=== PATIENT | female | born 1940 | race Caucasian/White ===

== ENCOUNTER 2019-01-17 19:25 | Emergency (ER) | payer MEDICARE ==
[2019-01-17 20:06] LABS: #Basophils 0.1 thou/uL (0.0-0.2); #Eosinphils 0.3 thou/uL (0.0-0.7); #Lymphocytes 2.1 thou/uL (1.20-3.40); #Monocytes 0.5 thou/uL (0.11-0.59); #Neutrophils 2.5 thou/uL (1.40-6.50); %Basophils 1.2 % (0.0-1.0); %Eosinophils 5.2 % (0.0-10.0); %Lymphocytes 38.6 % (21.0-51.0); %Monocytes 8.6 % (0.0-10.0); %Neutrophils 46.5 % (42.0-75.0); Hemoglobin 13.5 g/dL (12.0-16.0); Mean Corpuscular HGB CONC 33.4 g/dL (32.0-36.0); Mean Corpuscular Hemoglobin 32.6 pg (27.0-31.0); Mean Corpuscular Volume 97.5 fL (78.0-98.0); Mean Platelet Volume 8.2 fL (7.4-10.4); Platelet Count 215 thou/uL (130-400); RBC Distribution Width 12.5 % (11.5-14.5); Red Blood Cell (RBC) Count 4.14 mill/uL (4.20-5.40); White Blood Cell (WBC) Count 5.4 thou/uL (4.8-10.8)
[2019-01-17 20:28] LABS: ALT (SGPT) 13 U/L (8-55); AST (SGOT) 23 U/L (5-34); Albumin 4.2 g/dL (3.4-4.8); Alkaline Phosphatase 99 U/L (40-150); Anion Gap 13 mmol/L (10-20); BUN (Urea Nitrogen) 6 mg/dL (9.8-20.1); Bilirubin, Total 0.4 mg/dL (0.2-1.2); Calc. Creatinine Clearance 0 mL/min (70-130); Calcium 9.3 mg/dL (7.8-10.44); Carbon Dioxide 27 mmol/L (23-31); Chloride 108 mmol/L (98-107); Estimated GFR-MDRD 57; Globulin 2.5 g/dL (2.4-3.5); Potassium 3.7 mmol/L (3.5-5.1); Protein, Total 6.7 g/dL (6.0-8.3); Sodium 144 mmol/L (136-145)
[2019-01-17 20:35] LABS: Glucose 58 mg/dL (83-110)
[2019-01-17] MEDS ORDERED: Dextrose 50% Abboject 50 ML SYRINGE ONE (20:37)
== END 2019-01-17 21:22 | disposition home or self-care (01) ==
LOC: ERS 19:25
DX: I10 Essential (primary) hypertension (principal); E16.2 Hypoglycemia, unspecified; Z79.899 Other long term (current) drug therapy
CPT/HCPCS: 80053; 84484; 85025; 93005; 96374

== ENCOUNTER 2019-03-06 10:44 | Outpatient (CLI) | payer MEDICARE ==
--- NOTE | 2019-03-06 11:08 | CT ---
HEAD CT WITHOUT COTNRAST: HISTORY: Altered mental status. COMPARISON: None. FINDINGS: No parenchymal hemorrhage. No extraaxial hematoma. No midline shift. Basilar cisterns are patent. Brain volume is age appropriate. Cortical gibbons-white matter differentiation is preserved. Ventricles and sulci are patent and symmetric. Calvarium is intact. Mild mucosal thickening in the sinuses. Adequate mastoid air cells aeration. IMPRESSION: No acute intracranial process. POS: [facility]
== END 2019-03-06 10:45 | disposition home or self-care (01) ==
LOC: BICCT 10:44
PROVIDERS: ATTEND Internal Medicine Geriatric Medicine
DX: R41.82 Altered mental status, unspecified (principal)
CPT/HCPCS: 70450

== ENCOUNTER 2019-05-24 06:27 | Observation (INO) | payer MEDICARE ==
[2019-05-24 07:06] LABS: #Eosinphils 0.2 thou/uL (0.0-0.7); #Lymphocytes 1.8 thou/uL (1.20-3.40); #Monocytes 0.4 thou/uL (0.11-0.59); #Neutrophils 4.5 thou/uL (1.40-6.50); %Basophils 0.2 % (0.0-1.0); %Eosinophils 2.3 % (0.0-10.0); %Monocytes 6.1 % (0.0-10.0); %Neutrophils 65.5 % (42.0-75.0); Hemoglobin 13.7 g/dL (12.0-16.0); Mean Corpuscular HGB CONC 32.9 g/dL (32.0-36.0); Mean Corpuscular Hemoglobin 31.2 pg (27.0-31.0); Mean Platelet Volume 8.6 fL (7.4-10.4); Platelet Count 173 thou/uL (130-400); RBC Distribution Width 11.8 % (11.5-14.5); White Blood Cell (WBC) Count 6.8 thou/uL (4.8-10.8)
[2019-05-24] MEDS ORDERED: Morphine 4 MG/ML VIAL ONE (07:07)
[2019-05-24] MEDS ORDERED: Ondansetron PF 4 MG/2 ML Vial ONE (07:07)
[2019-05-24 07:18] LABS: ALT (SGPT) 12 U/L (8-55); AST (SGOT) 22 U/L (5-34); Albumin 3.9 g/dL (3.4-4.8); Alkaline Phosphatase 76 U/L (40-150); Anion Gap 12 mmol/L (10-20); BUN (Urea Nitrogen) 6 mg/dL (9.8-20.1); Bilirubin, Total 0.8 mg/dL (0.2-1.2); Calc. Creatinine Clearance 0 mL/min (70-130); Calcium 9.5 mg/dL (7.8-10.44); Carbon Dioxide 24 mmol/L (23-31); Chloride 107 mmol/L (98-107); Estimated GFR-MDRD 66; Globulin 2.3 g/dL (2.4-3.5); Glucose 84 mg/dL (83-110); Lipase 15 U/L (8-78); Protein, Total 6.2 g/dL (6.0-8.3); Sodium 139 mmol/L (136-145)
[2019-05-24 07:43] LABS: Bacteria/HPF None Seen HPF (None Seen); Bilirubin Negative (Negative); Blood, Urine Negative (Negative); Clarity Clear (Clear); Glucose, Urine (Dipstick) Normal (Negative); Leukocyte 250 Leu/uL (Negative); Mucous/LPF 1+ LPF (<2+); Nitrite Negative (Negative); Protein, Urine (Dipstick) Negative (Neg-Trace); RBC/HPF 0-3 HPF (0-3); Urobilinogen Normal mg/dL (Less than 2)
--- NOTE | 2019-05-24 08:51 | CT ---
CT abdomen and pelvis with IV contrast. Oral contrast was administered. INDICATIONS: Abdominal pain COMPARISON: 08/31/2016 CT abdomen pelvis FINDINGS: Lung bases are clear Liver, spleen, and pancreas appear unremarkable. Stomach and duodenum appear unremarkable. Adrenal glands appear normal. Kidneys appear unremarkable. Collecting structures and urinary bladder appear unremarkable. Distal ileal loops demonstrate diffuse mural thickening and luminal narrowing with some surrounding i nflammatory haziness suggesting enteritis. This involves the terminal ileum and cecum. Appendix not identified. The transverse and left colon unremarkable with diverticulosis in the sigmoid. Aorta shows atherosclerotic calcification. Normal caliber. No evidence of retroperitoneal or mesenteric adenopathy. Pelvic structures appear unremarkable. Small volume ascites is noted with small amount of fluid around the liver margin. Moderate fluid in t he deep pelvis is similar to the prior study. Subcutaneous tissues, abdominal wall, and muscular structures appear unremarkable. Osseous structures appear unremarkable. IMPRESSION: 1. Mural thickening of the distal and terminal ileum with inflammatory change suggesting enteritis. T here is cecal involvement. 2. Small volume ascites with moderate fluid in the deep pelvis, similar to the prior exam
[2019-05-24] MEDS ORDERED: Acetaminophen 325 MG TAB PO PRN (10:48)
[2019-05-24] MEDS ORDERED: Senokot S 8.6-50 MG TAB PO PRN (10:48)
[2019-05-24] MEDS: Sodium Chloride 0.9% 1,000 ML IV SCH (12:27)
--- NOTE | 2019-05-24 12:29 | HP ---
PRIMARY CARE PHYSICIAN: Dr. Gonzalez. REASON FOR ADMISSION: Abdominal pain. HISTORY OF PRESENT ILLNESS: Ms. Riddel is a 78-year-old female, who reported to the emergency room for abdominal pain overnight. Reports that she thinks she ate something bad either yesterday or day before. Denies any nausea, vomiting, or diarrhea. Does report some constipation, which she said she has dealt with most of her life. She has taken a laxative last night and reports that she usually gets some relief from that, but she has not today. The patient has a past medical history pertinent for hypertension and dementia. The patient is also a Jehov[employer] Witness and does not want any blood products. Family at the bedside. Code status was discussed. The patient is a full code, and son at the bedside is the surrogate decision maker. The patient reports that her belly was distended yesterday, but denied any gas or any stools in last 2 to 3 days. Denies any nausea, vomiting, or diarrhea. The patient was admitted to the medical unit for further observation. REVIEW OF SYSTEMS: Reports abdominal pain. Reports constipation. Reports complaining of midback pain several days ago. All other systems are reviewed and negative unless mentioned in the HPI. PAST MEDICAL HISTORY: 1. Hypothyroidism. 2. Hypertension. 3. Dementia. PAST SURGICAL HISTORY: History of hysterectomy. PSYCHIATRIC HISTORY: None. SOCIAL HISTORY: Lives at [facility]. Denies any alcohol, drug, or smoking history. ALLERGIES: PENICILLIN AND SULFA. MEDICATIONS: Current medications not available, we will have to further reconcile. Daughter at the bedside reports that she does take medicine for thyroid, for dementia, and for hypertension. Reports that she has not taken these this morning. PHYSICAL EXAMINATION: VITAL SIGNS: Blood pressure 144/86, pulse 61, respirations are 15, temperature is 98.0, pO2 sats are 99% on room air. CONSTITUTIONAL: The patient is nontoxic. She is alert and oriented to person, place, and time. HEENT: Head is atraumatic and normocephalic. Eyes; eyelids are normal to inspection. Extraocular muscles are intact. There is no nystagmus present. ENT; mouth exam is normal. Mucous membranes are moist. NECK: Normal range of motion. Trachea is midline. RESPIRATORY: Chest breath sounds are clear. There are no findings of any respiratory distress. CARDIOVASCULAR: Regular heart rate and rhythm. Heart sounds are normal. ABDOMEN: Tender in right lower quadrant. There is rebound. Bowel sounds are hypoactive. BACK: Normal inspection. Normal range of motion. No tenderness on palpation. EXTREMITIES: Upper extremities range of motion is normal. Motor strength is normal. Radial pulses are normal. Lower extremities, normal range of motion. Motor strength is normal. Pedal pulses are normal. The patient has some ecchymosis along the second and third base of metatarsals. No tender on palpation. NEUROLOGIC: The patient is oriented to person, place, and time. Speech is normal. SKIN: Warm, dry, normal in color. DIAGNOSTIC DATA: EKG in emergency room shows normal sinus rhythm, beats per minute 64, T-waves inverted in inferior leads and lateral leads, axis is left. ASSESSMENT AND PLAN: 1. Abdominal pain. Impression on the CT of abdomen and pelvis shows mural thickening of the distal and terminal ileum with inflammatory changing suggesting enteritis. There is also cecal involvement. Small volume ascites with moderate fluid in the deep pelvis similar to prior exam. There is concern for appendicitis. The patient and family at the bedside denied that she has had any belly surgery other than hysterectomy. We will ask Dr. Rock to consult. Levaquin was started in the ER. We will continue this. Normal saline at 75 mL per hour will be continued. The patient will become n.p.o. We will allow medications and sips of water. 2. History of hypothyroidism. We will check TSH. Restart home medications. 3. History of hypertension. Reconcile home medications. We will restart. We will trend. 4. Recheck labs in the morning. 5. Case discussed with Dr. Long, who agrees with plan. 6. Deep venous thrombosis and gastrointestinal prophylaxis have been started. Job ID: [id number]
[2019-05-24] MEDS ORDERED: ISOVUE-370 76%-LOCM 1 ML ONE (12:55)
[2019-05-24 13:18] LABS: Troponin I Less than 0.010 ng/mL (< 0.028)
[2019-05-24 16:09] LABS: Troponin I Less than 0.010 ng/mL (< 0.028)
[2019-05-24] MEDS: Lisinopril 10 MG TAB PO SCH (20:48)
[2019-05-24] MEDS: Famotidine 20 MG TAB PO SCH (20:50)
[2019-05-24] MEDS: Donepezil HCl 10 MG TAB PO SCH (20:50)
[2019-05-25] MEDS: Sodium Chloride 0.9% 1,000 ML IV SCH ×2 (02:32→17:56)
[2019-05-25] MEDS ORDERED: Levothyroxine Sodium 25 MCG TAB PO SCH (06:00)
[2019-05-25] MEDS ORDERED: Carvedilol 3.125 MG TAB PO SCH (08:00)
[2019-05-25] MEDS: Lisinopril 10 MG TAB PO SCH ×2 (09:20→21:51)
[2019-05-25] MEDS: Aspirin 81 mg Enteric Coated Tablet PO SCH (09:20)
[2019-05-25] MEDS: Famotidine 20 MG TAB PO SCH ×2 (09:21→21:51)
[2019-05-25] MEDS: Enoxaparin Sodium 40 MG/0.4 ML SYRINGE SC SCH (09:26)
[2019-05-25 09:48] LABS: #Eosinphils 0.1 thou/uL (0.0-0.7); #Lymphocytes 1.5 thou/uL (1.20-3.40); #Monocytes 0.3 thou/uL (0.11-0.59); #Neutrophils 2.4 thou/uL (1.40-6.50); %Basophils 0.3 % (0.0-1.0); %Eosinophils 2.2 % (0.0-10.0); %Lymphocytes 34.9 % (21.0-51.0); %Monocytes 7.8 % (0.0-10.0); %Neutrophils 54.9 % (42.0-75.0); Hemoglobin 11.9 g/dL (12.0-16.0); Mean Corpuscular Hemoglobin 32.1 pg (27.0-31.0); Mean Corpuscular Volume 97.2 fL (78.0-98.0); Mean Platelet Volume 8.4 fL (7.4-10.4); Platelet Count 141 thou/uL (130-400); RBC Distribution Width 11.6 % (11.5-14.5); White Blood Cell (WBC) Count 4.4 thou/uL (4.8-10.8)
[2019-05-25 10:13] LABS: ALT (SGPT) 8 U/L (8-55); AST (SGOT) 17 U/L (5-34); Albumin 3.2 g/dL (3.4-4.8); Alkaline Phosphatase 65 U/L (40-150); Anion Gap 11 mmol/L (10-20); BUN (Urea Nitrogen) 5 mg/dL (9.8-20.1); Bilirubin, Total 0.6 mg/dL (0.2-1.2); Calc. Creatinine Clearance 64 mL/min (70-130); Calcium 8.6 mg/dL (7.8-10.44); Carbon Dioxide 22 mmol/L (23-31); Chloride 109 mmol/L (98-107); Estimated GFR-MDRD 81; Glucose 68 mg/dL (83-110); Potassium 3.7 mmol/L (3.5-5.1); Protein, Total 5.2 g/dL (6.0-8.3); Sodium 138 mmol/L (136-145)
--- NOTE | 2019-05-25 12:17 | CON ---
DATE OF CONSULTATION: CHIEF COMPLAINT: Abnormal CT scan. HISTORY OF PRESENT ILLNESS: This is a 78-year-old female, who has chronic constipation. Evidently, she took a laxative and developed some abdominal pain, went to the emergency room. She says she feels fine now that she is back to baseline. She had a bowel movement. They had her on clear liquids last night, but she has been n.p.o. since. PAST MEDICAL HISTORY: Hypertension, dementia, and hypothyroidism. PAST SURGICAL HISTORY: Hysterectomy. MEDICATIONS: She is on; 1. Lisinopril. 2. Coreg. 3. Aspirin. 4. Synthroid. 5. Aricept. ALLERGIES: SHE HAS ALLERGIES TO PENICILLIN AND SULFA. SOCIAL HISTORY: She is a [employer]. She lives at a long term at [facility]. No tobacco or alcohol. PHYSICAL EXAMINATION: VITAL SIGNS: Temperature 97.3, pulse 57, and blood pressure 128/60. GENERAL: She is awake, alert. She does not appear to be in any distress. HEENT: Unremarkable. LUNGS: Clear. HEART: Regular rate and rhythm. ABDOMEN: Soft, nondistended, and nontender. EXTREMITIES: Unremarkable. LABORATORY DATA: White count 4.4, H and H of 11 and 35, and platelet count 141. CT scan showed some mural thickening of the terminal ileum and possible cecal involvement. ASSESSMENT: Enteritis/colitis. PLAN: GI consultation. No surgery needed. Job ID: [id number]
--- NOTE | 2019-05-25 15:55 | PDOC.HOSPP ---
- Subjective Encounter Date: 05/25/19 Encounter Time: 12:30 Subjective: pt up in bed complains of being bloated. - Objective Vital Signs & Weight: Vital Signs (12 hours) Temp Pulse Resp BP Pulse Ox 05/25/19 15:31 97.7 F 58 L 14 164/72 H 99 05/25/19 11:58 97.9 F 50 L 20 166/70 H 99 05/25/19 07:28 97.3 F L 57 L 20 128/60 97 Weight Weight 134 lb 14.4 oz I&O: 05/24/19 05/25/19 05/26/19 06:59 06:59 06:59 Intake Total 1956 Output Total 950 200 Balance 1006 -200 Result Diagrams: 05/25/19 09:40 05/25/19 09:40 Hospitalist ROS - Review of Systems Respiratory: denies: cough, dry, shortness of breath, hemoptysis, SOB with excertion, pleuritic pain, sputum, wheezing, other Cardiovascular: denies: chest pain, palpitations, orthopnea, paroxysmal noc. dyspnea, edema, light headedness, other Gastrointestinal: reports: abdominal pain - Medication Medications: Active Medications Generic Name Dose Route Start Last Admin Trade Name Freq PRN Reason Stop Dose Admin Acetaminophen 650 mg 05/24/19 10:48 05/25/19 02:33 Tylenol PO 650 mg Q4H PRN Administration Headache/Fever/Mild Pain (1-3) Aspirin 81 mg 05/25/19 09:00 05/25/19 09:20 Ecotrin PO 81 mg DAILY MOOK Administration Carvedilol 3.125 mg 05/25/19 08:00 05/25/19 09:20 Coreg PO 3.125 mg BID-WM MOOK Administration Donepezil HCl 10 mg 05/24/19 21:00 05/24/19 20:50 Aricept PO 10 mg HS MOOK Administration Enoxaparin Sodium 40 mg 05/25/19 09:00 05/25/19 09:26 Lovenox SC Not Given 0900 MOOK Famotidine 20 mg 05/24/19 21:00 05/25/19 09:21 Pepcid PO 20 mg BID MOOK Administration Sodium Chloride 1,000 mls @ 75 mls/hr 05/24/19 11:00 05/25/19 02:32 Normal Saline 0.9% IV 1,000 mls .[id number] MOOK Administration Levofloxacin 750 mg/ Device 150 mls @ 100 mls/hr 05/25/19 09:00 05/25/19 09: 21 IVPB 150 mls Q24HR MOOK Administration Lisinopril 10 mg 05/24/19 21:00 05/25/19 09:20 Zestril PO 10 mg BID MOOK Administration - Exam Heart: negative: RRR, no murmur, no gallops, no rubs, normal peripheral pulses, irregular, diminshed peripheral pulses, murmur present, II/IV, III/IV Respiratory: negative: CTAB, no wheezes, no rales, no ronchi, normal chest expansion, no tachypnea, normal percussion, rales, rhonchi, tachypneic, wheezes Gastrointestinal: soft, tender to palpation Hosp A/P (1) Enteritis Code(s): K52.9 - NONINFECTIVE GASTROENTERITIS AND COLITIS, UNSPECIFIED Status : Acute (2) Hypertension, uncontrolled Code(s): I10 - ESSENTIAL (PRIMARY) HYPERTENSION Status: Acute (3) UTI (urinary tract infection) Status: Acute - Plan no uti. will get echo since her bnp is elevated. will hold coreg due to bradycardia. will decrease her thyroid medication to 88mcg for low tsh.
[2019-05-25] MEDS ORDERED: Furosemide 40 MG/4 ML VIAL SLOW IVP SCH (16:00)
[2019-05-25] MEDS: Donepezil HCl 10 MG TAB PO SCH (21:53)
[2019-05-26] MEDS ORDERED: diphenhydrAMINE 50 MG/ML VIAL IVP SCH (02:00)
[2019-05-26] MEDS ORDERED: Levothyroxine Sodium 88 MCG TAB PO SCH (06:00)
[2019-05-26] MEDS: Famotidine 20 MG TAB PO SCH (09:04)
[2019-05-26] MEDS: Aspirin 81 mg Enteric Coated Tablet PO SCH (09:04)
[2019-05-26] MEDS: Enoxaparin Sodium 40 MG/0.4 ML SYRINGE SC SCH (09:05)
[2019-05-26] MEDS: Lisinopril 10 MG TAB PO SCH (09:05)
[2019-05-26 16:00] VITALS: BMI 23.8
[2019-05-26 16:02] VITALS: BP 171/79; TEMP 97.6
--- NOTE | 2019-05-27 03:42 | DIS ---
DATE OF ADMISSION: 05/24/2019 DATE OF DISCHARGE: 05/26/2019 DISCHARGE DIAGNOSES: As of the following. 1. Abdominal pain secondary to enteritis. 2. Mildly elevated BNP. 3. Abdominal bloating. 4. Hypertension. HOSPITAL COURSE: The patient is a 78-year-old female, who initially presented to the hospital with complaints of abdominal pain and bloating. She had a CT of abdomen and pelvis, which did show she did have some thickening in the distal terminal ileum with inflammatory changes suggesting enteritis. I have reviewed her previous record and she had the same findings in her previous abdominal CAT scan in the past, and it has always been distal terminal ileum. She also was found to have moderate ascites and moderate fluid. I did update the patient's family about this. The patient also has a little bit of dementia. She does not remember a lot of things. Her abdominal pain improved, and she was able to tolerate her meals and she was discharged. The patient's family states that at baseline she does not eat very much to begin with and has lost 4 pounds. According to the family, she is a bad eater. She also has significant constipation and takes laxatives for that. I recommended following up with GI for further evaluation for this chronic findings that she has had on multiple CAT scans. Family understands. Also, she had an echocardiogram with Cardiology about 3 months ago and it appeared to be stable. I did order an echocardiogram here, the results were pending. The patient's family wanted to take her home before the results came back. The patient again was able to tolerate meals. Her abdominal pain had improved. I will discharge her. While she was here, she did have her TSH checked, which was low, so we decreased her Synthroid from 100 mcg to 88 mcg. Her meds will be as of following, 1. Levaquin 500 mg daily. 2. Synthroid 88 mcg daily. 3. Florastor 250 mg daily. 4. Aricept 10 mg daily. 5. Aspirin 81 mg daily. 6. Carvedilol 1 p.o. b.i.d. 7. Lisinopril 10 mg p.o. b.i.d. PHYSICAL EXAMINATION: VITAL SIGNS: As of the following; temperature of 97.6, pulse 64, respirations 18, temperature 98% on room air, and blood pressure 141/72. GENERAL: She is awake, alert and oriented x3. ABDOMEN: She has mild pain upon palpation to her abdominal area, otherwise soft. Bowel sounds are present. EXTREMITIES: No edema. Pedal pulses are present x2. LUNGS: Clear to auscultation. The patient was seen by General Surgery, no intervention. They thought initially the CT findings were consistent with possible appendicitis. However, Surgery did evaluate and recommended a GI consultation, which I agree. However, the patient can follow this up as an outpatient since this was not an acute finding, she has had this in the past. Also, the patient has had a colonoscopy per family a long time ago, not in this state, it was a different state. Job ID: [id number]
== END 2019-05-26 19:32 | disposition home or self-care (01) ==
LOC: ERS 06:27 → 2SW 10:10
PROVIDERS: ADMIT Internal Medicine Nephrology; ATTEND Internal Medicine Nephrology
DX: K52.9 Noninfective gastroenteritis and colitis, unspecified (principal); R18.8 Other ascites; R79.89 Other specified abnormal findings of blood chemistry; I10 Essential (primary) hypertension; E03.9 Hypothyroidism, unspecified; F03.90 Unspecified dementia, unspecified severity, without behavioral disturbance, psychotic disturbance, mood disturbance, and anxiety; Z88.0 Allergy status to penicillin; Z88.5 Allergy status to narcotic agent
CPT/HCPCS: 74177; 80053; 83605; 83690; 83880; 84484 ×2; 85025; 87086; 93005; 93306; 96361 ×3; 96365; 96366 ×2; 96375 ×2; 96376; 97112; 97116; 97139 ×3; 99285; G0378 ×4; 36415; 81003; 81015; 84443; J1200; J1650; J1940; J1956; J2270; J2405; Q9966

== ENCOUNTER 2019-05-30 00:22 | Emergency (ER) | payer MEDICARE ==
[2019-05-30 00:49] LABS: #Basophils 0.1 thou/uL (0.0-0.2); #Eosinphils 0.2 thou/uL (0.0-0.7); #Lymphocytes 1.9 thou/uL (1.20-3.40); #Monocytes 0.5 thou/uL (0.11-0.59); #Neutrophils 1.9 thou/uL (1.40-6.50); %Basophils 1.7 % (0.0-1.0); %Lymphocytes 41.3 % (21.0-51.0); %Monocytes 11.7 % (0.0-10.0); %Neutrophils 41.2 % (42.0-75.0); Hemoglobin 11.9 g/dL (12.0-16.0); Mean Corpuscular HGB CONC 33.3 g/dL (32.0-36.0); Mean Corpuscular Hemoglobin 31.7 pg (27.0-31.0); Mean Corpuscular Volume 95.3 fL (78.0-98.0); Mean Platelet Volume 8.1 fL (7.4-10.4); Platelet Count 182 thou/uL (130-400); RBC Distribution Width 11.8 % (11.5-14.5); Red Blood Cell (RBC) Count 3.76 mill/uL (4.20-5.40); White Blood Cell (WBC) Count 4.6 thou/uL (4.8-10.8)
[2019-05-30 01:09] LABS: ALT (SGPT) 10 U/L (8-55); AST (SGOT) 18 U/L (5-34); Albumin 3.7 g/dL (3.4-4.8); Alkaline Phosphatase 86 U/L (40-150); Anion Gap 12 mmol/L (10-20); BUN (Urea Nitrogen) 6 mg/dL (9.8-20.1); Bilirubin, Total 0.5 mg/dL (0.2-1.2); Calc. Creatinine Clearance 0 mL/min (70-130); Calcium 9.4 mg/dL (7.8-10.44); Carbon Dioxide 25 mmol/L (23-31); Chloride 107 mmol/L (98-107); Estimated GFR-MDRD 64; Globulin 2.3 g/dL (2.4-3.5); Glucose 92 mg/dL (83-110); Lipase 24 U/L (8-78); Potassium 3.4 mmol/L (3.5-5.1); Sodium 141 mmol/L (136-145)
[2019-05-30 02:49] LABS: Bilirubin Negative (Negative); Blood, Urine Negative (Negative); Clarity Clear (Clear); Glucose, Urine (Dipstick) Normal (Negative); Leukocyte Negative Leu/uL (Negative); Nitrite Negative (Negative); Protein, Urine (Dipstick) Negative (Neg-Trace); Urobilinogen Normal mg/dL (Less than 2)
--- NOTE | 2019-05-30 08:02 | CT ---
PRELIMINARY REPORT/[facility]/EMERGENCY AFTER HOURS PROCEDURE: PROCEDURE INFORMATION: Exam: CT Abdomen and Pelvis With Contrast Exam date and time: 05/30/2019 1:12 AM Clinical history: 78 years old, female; Abdominal pain; Generalized; Patient HX: 78 y/o F presents to ED via EMS transport C/O abd pain, with bloating sensation. PT states her abd has felt swollen x 2-3 days, with worsening since onset. She as prompted to come to ED as the pain has become severe TECHNIQUE: Imaging protocol: Computed tomography of the abdomen and pelvis with intravenous contrast. COMPARISON: No relevant prior studies available. FINDINGS: Liver: Normal. No mass. Gallbladder and bile ducts: Normal. No calcified stones. No ductal dilation. Pancreas: Normal. No ductal dilation. Spleen: Normal. No splenomegaly. Adrenals: Normal. No mass. Kidneys and ureters: Normal. No hydronephrosis. Stomach and bowel: Colonic diverticulosis. No diverticulitis. No bowel wall thickening or intestinal obstruction. Appendix: Normal appendix. Intraperitoneal space: Unremarkable. No free air. No significant fluid collection. Vasculature: Unremarkable. No abdominal aortic aneurysm. Lymph nodes: Unremarkable. No enlarged lymph nodes. Bladder: Unremarkable as visualized. Reproductive: 2.2 cm right ovarian cyst. Prior hysterectomy. Bones/joints: Unremarkable. No acute fracture. Soft tissues: Unremarkable. IMPRESSION: 2.2 cm right ovarian cyst. Thank you for allowing us to participate in the care of your patient. Dictated and Authenticated by: Ced Puente MD 05/30/2019 2:13 AM Central Time ([place] & [place]) FINAL REPORT CT ABDOMEN AND PELVIS WITH IV CONTRAST: Date: 05/30/19 FINDINGS/IMPRESSION: Comparison made to CT abdomen and pelvis dated 05/24/19. The mural thickening and inflammatory change involving the distal ileum on the prior exam is no longe r apparent. The fluid in the deep pelvis seen on the prior exam has resolved. There is a 2.0 cm cyst in the right upper pelvis which appears to be ovarian. There is evidence of hy sterectomy. I am in agreement with the preliminary report issued by [facility]. POS: [facility]
[2019-05-30] MEDS ORDERED: ISOVUE-370 76%-LOCM 1 ML ONE (11:57)
--- NOTE | 2019-05-31 13:38 | EKG ---
Test Reason : Blood Pressure : / mmHG Vent. Rate : 063 BPM Atrial Rate : 061 BPM P-R Int : 000 ms QRS Dur : 098 ms QT Int : 418 ms P-R-T Axes : 000 -36 -49 degrees QTc Int : 427 ms Junctional rhythm Left axis deviation Septal infarct , age undetermined Abnormal ECG Confirmed by MACHELLE IGLESIAS ([id number]), principal technical architect SINDY PHILIP ([id number]) on 05/31/2019 1:37:49 PM Referred By: Confirmed By:MACHELLE IGLESIAS
== END 2019-05-30 02:58 | disposition home or self-care (01) ==
LOC: ERS 00:22
DX: R10.9 Unspecified abdominal pain (principal); E03.9 Hypothyroidism, unspecified; I10 Essential (primary) hypertension
CPT/HCPCS: 36415; 74177; 80053; 81003; 83690; 83880; 85025; 93005; Q9966

== ENCOUNTER 2019-06-17 22:37 | Emergency (ER) | payer MEDICARE ==
[2019-06-17] MEDS ORDERED: Fentanyl 100 MCG/2 ML VIAL ONE (23:13)
--- NOTE | 2019-06-17 23:18 | RAD ---
XR Wrist Lt 2 View History: Fall. Deformity Comparison: None. Findings: Intra-articular distal radius fracture with impaction and dorsal angulation. There is also distal ulnar fracture also with impaction and dorsal angulation. Impression: Impacted dorsally angulated intra-articular fractures of the distal radius and ulna.
[2019-06-17] MEDS ORDERED: Midazolam HCl 2 mg/2 ml Vial ONE (23:39)
[2019-06-18] MEDS ORDERED: Acetaminophen 500 MG TAB ONE
[2019-06-18] MEDS ORDERED: Fentanyl 100 MCG/2 ML VIAL ONE (00:13)
[2019-06-18] MEDS ORDERED: PROPOFOL 20 ML ONE (01:24)
--- NOTE | 2019-06-18 07:40 | RAD ---
LEFT WRIST 2 VIEWS: INDICATION: Post reduction. Compared to exam from previous day. FINDINGS: Interval placement of splint. Improved alignment of distal radial and ulnar fractures with mild displacement remaining. There is slight angulation of the distal ulnar fracture, although improved. Detail is otherwise limited by overlying artifact. IMPRESSION: Improved alignment of distal radial and ulnar fractures. Transcribed Date/Time: 06/18/2019 7:53 AM
== END 2019-06-18 02:16 | disposition home or self-care (01) ==
LOC: ERS 22:37
DX: S52.502A Unspecified fracture of the lower end of left radius, initial encounter for closed fracture (principal); S52.602A Unspecified fracture of lower end of left ulna, initial encounter for closed fracture; I10 Essential (primary) hypertension; W01.0XXA Fall on same level from slipping, tripping and stumbling without subsequent striking against object, initial encounter
CPT/HCPCS: 25605; 96374; 96375; 96376; 99152; J2250; J2704; J3010

== ENCOUNTER 2019-06-21 07:14 | Emergency (ER) | payer MEDICARE ==
--- NOTE | 2019-06-21 08:07 | RAD ---
Left wrist 3 views HISTORY: Left wrist fracture. Reinjury. COMPARISON: 06/18/2019. FINDINGS: Fiberglas cast is no longer in place. Comminuted fractures of the distal radius and ulna ar e again demonstrated. Minimal posterior displacement of the major distal radial fragment is unchanged. Minimal displacement of the ulnar fragments also unchanged. Mild dorsal tilt is stable. Os seous structures are demineralized. No periosteal reaction or callus yet evident. No new fractures. IMPRESSION: Comminuted distal radial and ulnar fractures. No significant healing yet apparent. No bereket nge in alignment. Osteoporosis.
[2019-06-21] MEDS ORDERED: HYDROcodone/Acetaminophen 5/325 mg Tablet ONE (08:19)
== END 2019-06-21 09:35 | disposition home or self-care (01) ==
LOC: ERS 07:14
DX: S52.502D Unspecified fracture of the lower end of left radius, subsequent encounter for closed fracture with routine healing (principal); S62.502D Fracture of unspecified phalanx of left thumb, subsequent encounter for fracture with routine healing; E03.9 Hypothyroidism, unspecified; I10 Essential (primary) hypertension; X58.XXXD Exposure to other specified factors, subsequent encounter
CPT/HCPCS: 29125

== ENCOUNTER 2019-06-29 16:08 | Emergency (ER) | payer MEDICARE ==
--- NOTE | 2019-06-29 16:51 | RAD ---
RADIOGRAPH CHEST ONE VIEW RADIOGRAPH ABDOMEN 2 VIEWS: DATE: 06/29/2019 HISTORY: 78-year-old female with abdominal pain. FINDINGS: There are no airspace densities or pulmonary edema. The lateral costophrenic angles are sharp. There is no cardiomegaly. There is no evidence of pneumothorax or pneumoperitoneum. There is no evidence of dilated small bowel loops, differential air-fluid levels, or organomegaly. Mo derately large amount of gas in multiple nondilated loops of small bowel, and some in the transverse colon. IMPRESSION: 1) No acute cardiopulmonary findings. 2) no evidence of high-grade bowel obstruction.
[2019-06-29 17:10] LABS: #Eosinphils 0.1 thou/uL (0.0-0.7); #Lymphocytes 1.1 thou/uL (1.20-3.40); #Monocytes 0.2 thou/uL (0.11-0.59); #Neutrophils 2.5 thou/uL (1.40-6.50); %Basophils 0.2 % (0.0-1.0); %Eosinophils 2.9 % (0.0-10.0); %Lymphocytes 28.8 % (21.0-51.0); %Monocytes 4.4 % (0.0-10.0); %Neutrophils 63.7 % (42.0-75.0); Hemoglobin 12.1 g/dL (12.0-16.0); Mean Corpuscular HGB CONC 32.7 g/dL (32.0-36.0); Mean Corpuscular Hemoglobin 31.4 pg (27.0-31.0); Mean Corpuscular Volume 95.8 fL (78.0-98.0); Mean Platelet Volume 8.3 fL (7.4-10.4); Platelet Count 184 thou/uL (130-400); RBC Distribution Width 12.8 % (11.5-14.5); Red Blood Cell (RBC) Count 3.86 mill/uL (4.20-5.40); White Blood Cell (WBC) Count 3.9 thou/uL (4.8-10.8)
[2019-06-29 17:34] LABS: ALT (SGPT) 8 U/L (8-55); AST (SGOT) 19 U/L (5-34); Albumin 3.3 g/dL (3.4-4.8); Alkaline Phosphatase 85 U/L (40-110); Anion Gap 11 mmol/L (10-20); BUN (Urea Nitrogen) 7 mg/dL (9.8-20.1); Bilirubin, Total 0.5 mg/dL (0.2-1.2); Calc. Creatinine Clearance 0 mL/min (70-130); Calcium 8.8 mg/dL (7.8-10.44); Carbon Dioxide 24 mmol/L (23-31); Chloride 108 mmol/L (98-107); Estimated GFR-MDRD 71; Globulin 2.2 g/dL (2.4-3.5); Glucose 103 mg/dL (83-110); Potassium 4.3 mmol/L (3.5-5.1); Protein, Total 5.5 g/dL (6.0-8.3); Sodium 139 mmol/L (136-145)
[2019-06-29 18:19] LABS: Bilirubin Negative (Negative); Blood, Urine Negative (Negative); Clarity Clear (Clear); Glucose, Urine (Dipstick) Normal (Negative); Leukocyte Negative Leu/uL (Negative); Nitrite Negative (Negative); Protein, Urine (Dipstick) Negative (Neg-Trace); Urobilinogen Normal mg/dL (Less than 2)
== END 2019-06-29 20:55 ==
LOC: ERS 16:08
DX: K59.00 Constipation, unspecified (principal); E03.9 Hypothyroidism, unspecified; I10 Essential (primary) hypertension; Z79.899 Other long term (current) drug therapy
CPT/HCPCS: 36415; 74022; 80053; 81003; 83690; 85025

== ENCOUNTER 2019-07-01 12:20 | Emergency (ER) | payer MEDICARE ==
[2019-07-01 14:49] LABS: #Basophils 0.1 thou/uL (0.0-0.2); #Eosinphils 0.2 thou/uL (0.0-0.7); #Lymphocytes 2.1 thou/uL (1.20-3.40); #Monocytes 0.5 thou/uL (0.11-0.59); #Neutrophils 4.3 thou/uL (1.40-6.50); %Basophils 0.9 % (0.0-1.0); %Eosinophils 2.5 % (0.0-10.0); %Lymphocytes 29.8 % (21.0-51.0); %Monocytes 6.8 % (0.0-10.0); Hemoglobin 12.7 g/dL (12.0-16.0); Mean Corpuscular HGB CONC 32.8 g/dL (32.0-36.0); Mean Corpuscular Hemoglobin 31.2 pg (27.0-31.0); Mean Corpuscular Volume 95.2 fL (78.0-98.0); Mean Platelet Volume 8.4 fL (7.4-10.4); Platelet Count 216 thou/uL (130-400); RBC Distribution Width 12.9 % (11.5-14.5); Red Blood Cell (RBC) Count 4.08 mill/uL (4.20-5.40); White Blood Cell (WBC) Count 7.1 thou/uL (4.8-10.8)
[2019-07-01 15:10] LABS: ALT (SGPT) 7 U/L (8-55); AST (SGOT) 22 U/L (5-34); Albumin 3.5 g/dL (3.4-4.8); Alkaline Phosphatase 109 U/L (40-110); Anion Gap 17 mmol/L (10-20); BUN (Urea Nitrogen) 4 mg/dL (9.8-20.1); Bilirubin, Total 0.9 mg/dL (0.2-1.2); Calc. Creatinine Clearance 0 mL/min (70-130); Calcium 9.2 mg/dL (7.8-10.44); Carbon Dioxide 20 mmol/L (23-31); Chloride 105 mmol/L (98-107); Estimated GFR-MDRD 69; Globulin 2.5 g/dL (2.4-3.5); Glucose 99 mg/dL (83-110); Lipase 8 U/L (8-78); Potassium 4.2 mmol/L (3.5-5.1); Sodium 138 mmol/L (136-145)
[2019-07-01 16:19] LABS: Bilirubin Negative (Negative); Blood, Urine Negative (Negative); Clarity Clear (Clear); Glucose, Urine (Dipstick) Normal (Negative); Leukocyte Negative Leu/uL (Negative); Nitrite Negative (Negative); Protein, Urine (Dipstick) Negative (Neg-Trace); Urobilinogen Normal mg/dL (Less than 2)
--- NOTE | 2019-07-01 16:30 | CT ---
CT abdomen and pelvis with IV contrast. Oral contrast was not administered. INDICATIONS: Abdominal pain COMPARISON: CT abdomen pelvis 05/30/2019 FINDINGS: Lung bases are clear Liver, spleen, and pancreas appear unremarkable. Tiny hepatic and splenic cystic lesions are stable. Stomach and duodenum appear unremarkable. Adrenal glands appear normal. Kidneys appear unremarkable. Collecting structures and urinary bladder appear unremarkable. Small bowel loops are normal caliber and exhibit normal fold pattern. Appendix not definitely identified. Large amount of stool in the rectosigmoid with dilatation of the rectosigmoid consistent with fecal i mpaction. There is mural thickening and surrounding inflammatory change involving the rectosigmoid region which is new from prior exam and indicate stercoral colitis. Aorta is densely calcified but normal caliber. No evidence of retroperitoneal or mesenteric adenopathy. There is evidence of hysterectomy. Subcutaneous tissues, abdominal wall, and muscular structures appear unremarkable. Osseous structures appear unremarkable. IMPRESSION: 1. Dilated stool filled rectosigmoid region consistent with fecal impaction. Rectosigmoid measures up to 8 cm diameter. There is mural thickening and surrounding inflammation which is new from prior exam. 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
== END 2019-07-01 17:53 | disposition home or self-care (01) ==
LOC: ERS 12:20
DX: K52.89 Other specified noninfective gastroenteritis and colitis (principal); K59.00 Constipation, unspecified; E03.9 Hypothyroidism, unspecified; I10 Essential (primary) hypertension; Z79.899 Other long term (current) drug therapy; Z79.891 Long term (current) use of opiate analgesic; Z79.82 Long term (current) use of aspirin
CPT/HCPCS: 36415; 51701; 74177; 80053; 81003; 82550; 83605; 83690; 85025; 87045; 87046; 87324; 87328; 87329; 87427; 87449; 96360; 96361; A4353

== ENCOUNTER 2019-07-21 13:36 | Outpatient (CLI) | payer MEDICARE ==
--- NOTE | 2019-07-21 13:57 | RAD ---
TWO VIEWS ABDOMEN: HISTORY: Infectious enteritis. Fecal impaction. FINDINGS: Nonspecific bowel gas pattern. There is scattered fecal material in a nondistended, nondilated colon. Phleboliths in the left and right hemipelvis are noted. No suspicious densities in the abdomen. No differential air-fluid on the right exam. No pneumoperitoneum. IMPRESSION: Nonspecific bowel gas pattern. Transcribed Date/Time: 07/21/2019 2:27 PM
== END 2019-07-21 13:37 | disposition home or self-care (01) ==
LOC: BICRAD 13:36
PROVIDERS: ATTEND Internal Medicine Gastroenterology
DX: A09 Infectious gastroenteritis and colitis, unspecified (principal); K56.41 Fecal impaction; R63.4 Abnormal weight loss; S62.92XA Unspecified fracture of left hand, initial encounter for closed fracture
CPT/HCPCS: 74019

== ENCOUNTER 2021-10-27 10:36 | Outpatient (CLI) | payer MEDICARE | END 2021-10-27 10:37 | disposition home or self-care (01) | LOC: BICRAD 10:36 | PROVIDERS: ATTEND Family Medicine | DX: R14.0 Abdominal distension (gaseous) (principal) | CPT/HCPCS: 36415; 74018; 80053; 81001; 84443; 85025; 85060; 87086; 88184 ==

== ENCOUNTER 2021-11-24 09:05 | Outpatient (CLI) | payer MEDICARE | END 2021-11-24 09:06 | disposition home or self-care (01) | LOC: BICRAD 09:05 | PROVIDERS: ATTEND Family Medicine | DX: M79.601 Pain in right arm (principal) ==

== ENCOUNTER 2022-02-10 12:09 | Emergency (ER) | payer MEDICARE ==
[2022-02-10 13:23] LABS: ALT (SGPT) 8 U/L (8-55); AST (SGOT) 25 U/L (5-34); Albumin 3.4 g/dL (3.4-4.8); Alkaline Phosphatase 83 U/L (40-110); Anion Gap 13 mmol/L (10-20); BUN (Urea Nitrogen) 12 mg/dL (9.8-20.1); Bilirubin, Total 0.4 mg/dL (0.2-1.2); Calc. Creatinine Clearance 0 mL/min (70-130); Calcium 8.7 mg/dL (7.8-10.44); Carbon Dioxide 23 mmol/L (23-31); Chloride 106 mmol/L (98-107); Globulin 2.7 g/dL (2.4-3.5); Glucose 90 mg/dL (83-110); Potassium 4.4 mmol/L (3.5-5.1); Protein, Total 6.1 g/dL (5.8-8.1); Sodium 138 mmol/L (136-145)
[2022-02-10 13:25] LABS: Hemoglobin 10.3 g/dL (12.0-16.0); Mean Corpuscular HGB CONC 30.9 g/dL (32.0-36.0); Mean Corpuscular Hemoglobin 30.9 pg (27.0-31.0); Mean Platelet Volume 8.4 fL (7.4-10.4); Platelet Count 876 thou/uL (130-400); RBC Distribution Width 14.4 % (11.5-14.5); Red Blood Cell (RBC) Count 3.33 mill/uL (4.20-5.40); Reflex for Review?? NO
[2022-02-10 13:44] LABS: Band 17 % (5-11); Blast 9 % (0-0); Eosinophils 2 % (0-10); Hypochromia SLIGHT = 6-15 cells (100X) (0-5/hpf); Lymphocytes 4 % (21-51); MDiff Complete? YES; Macrocytosis SLIGHT = 6-15 cells (100X) (0-5/hpf); Metamyelocyte 7 % (0-0); Monocytes 3 % (0-10); Myelocyte 11 % (0-0); Neutrophil 37 % (42-75); Platelet Morphology Comment Appears Increased; Polychromasia SLIGHT = 2-3 cells (100X) (0-2/hpf); Promyelocytes 3 % (0-0); Reactive Lymphocytes 3 % (0-10)
== END 2022-02-10 15:35 | disposition home or self-care (01) ==
LOC: ERS 12:09
DX: R07.9 Chest pain, unspecified (principal); G30.9 Alzheimer's disease, unspecified; F02.80 Dementia in other diseases classified elsewhere, unspecified severity, without behavioral disturbance, psychotic disturbance, mood disturbance, and anxiety; C95.90 Leukemia, unspecified not having achieved remission; E03.9 Hypothyroidism, unspecified; I10 Essential (primary) hypertension; Z79.899 Other long term (current) drug therapy
CPT/HCPCS: 71045; 80053; 84484; 85025; 93005; 94760